=== PATIENT | female | born 1960 | race Caucasian/White ===

== ENCOUNTER → 2017-03-05 | Outpatient (CLI) | payer BC ==
[~2017-03-05] MED LIST: CALCTAB29 PO; CLON0.5T PO; NEXI40GR PO; NORCOBULK FT
[2017-03-05 10:45] LABS: BASO % 0.6 % (0.0-1.0); EOS # 0.1 K/mm3 (0.0-0.50); EOS % 1.9 % (0.0-3.0); LARGE UNSTAINED CELL # 0.2 K/mm3 (0.0-0.4); LARGE UNSTAINED CELL % 2.1 % (0.0-4.0); LYMPH # 2.5 K/mm3 (1.5-4.5); MEAN CORPUSCULAR HEMOGLOBIN 31.6 pg (27.0-33.0); MEAN CORPUSCULAR HGB CONC 33.6 g/dl (32.0-36.5); MEAN CORPUSCULAR VOLUME 94.2 fl (80.0-96.0); MONO # 0.4 K/mm3 (0.0-0.8); MONO % 5.2 % (0.0-5.0); NEUTROPHILS # 4.1 K/mm3 (1.8-7.7); NEUTROPHILS % 57.2 % (36.0-66.0); PLATELET COUNT, AUTOMATED 194 k/mm3 (150-450); RED CELL DISTRIBUTION WIDTH 13.1 % (11.5-14.5); WHITE BLOOD COUNT 7.1 K/mm3 (4.0-10.0)
[2017-03-05 11:16] LABS: ALBUMIN/GLOBULIN RATIO 1.29 (1.00-1.93); ALKALINE PHOSPHATASE 44 U/L (45-117); ALT/SGPT 34 U/L (12-78); ANION GAP 5 MEQ/L (8-16); AST/SGOT 23 U/L (15-37); BILIRUBIN,TOTAL 0.4 MG/DL (0.2-1.0); BLOOD UREA NITROGEN 22 MG/DL (7-18); CARBON DIOXIDE LEVEL 28 MEQ/L (21-32); CHLORIDE LEVEL 102 MEQ/L (98-107); CREATININE FOR GFR 0.88 MG/DL (0.55-1.02); FREE T4 1.15 NG/DL (0.76-1.46); GLOMERULAR FILTRATION RATE > 60.0 (>51); GLUCOSE, FASTING 101 MG/DL (70-105); POTASSIUM SERUM 4.2 MEQ/L (3.5-5.1); SODIUM LEVEL 135 MEQ/L (136-145); TOTAL PROTEIN 7.1 GM/DL (6.4-8.2)
== END ==
LOC: M LAB 09:53
PROVIDERS: ATTEND Physician Assistant Medical
DX: R19.7 Diarrhea, unspecified (principal)

== ENCOUNTER → 2017-03-13 | Outpatient (CLI) | payer BC ==
[~2017-03-13] MED LIST changes: +E-Z-PAQUE 96% w/w SUSP 176GM BTL As Ordered ONE
--- NOTE | 2017-03-13 16:38 | REP ---
SMALL BOWEL FOLLOW-THROUGH: The procedure was performed under the direct supervision of Dr. Navarro. The images were reviewed with Dr. Navarro. The assistant grocery film shows no organomegaly or pathological masses. The intestinal gas pattern is nonspecific. Liquid barium was administered and the barium column was followed through the small bowel to the level of the terminal ileum. Small bowel transit time is approximately 90 minutes. During fluoroscopy gentle palpation shows all loops are freely movable and pliable. There are no fixed or angulated loops. The small bowel mucosal pattern is normal in course and caliber. There is no transition to suggest a partial small bowel obstruction. Note is made of a duodenal diverticulum. Spot filming of terminal ileum demonstrates a tiny diverticulum, otherwise the terminal ileum is unremarkable. IMPRESSION: There is a diverticulum seen in the duodenum. There is a tiny diverticulum seen in the terminal ileum. Otherwise unremarkable small bowel follow-through examination. 45 seconds of fluoroscopy time was utilized for this procedure. Reviewed by WES Ferrell 03/13/2017 04:47 PEdited and Signed by Farshad Navarro MD 03/14/2017 05:17 P
== END ==
LOC: M RAD 08:37 → MERGE 09:00
PROVIDERS: ATTEND Physician Assistant Medical
DX: R19.7 Diarrhea, unspecified (principal); R10.9 Unspecified abdominal pain

== ENCOUNTER → 2019-04-21 | Outpatient (CLI) | payer BC, MEDICARE, OTHER ==
[~2019-04-21] MED LIST changes: -E-Z-PAQUE 96% w/w SUSP 176GM BTL As Ordered ONE
--- NOTE | 2019-04-21 13:43 | REP ---
MRI RIGHT KNEE WITHOUT CONTRAST: HISTORY: Pain in the right knee. No comparison imaging. Rule out ACL or other ligament tear. TECHNIQUE: Axial, coronal and sagittal imaging planes utilized for T1, proton density and T2-weighted scans obtained in the usual fashion with and without fat saturation. MRI FINDINGS: There is minimal amount of suprapatellar joint effusion. No Goins's cyst is appreciated. Anterior and posterior cruciate ligaments have an intact appearance. Patellar and quadriceps tendons are intact. There is no evidence of medial or lateral collateral ligament disruption. There is an area of marrow edema in the lateral tibial plateau just beneath the superolateral cortex. No overlying cartilage defect is appreciated here. This may represent contusion or reactive marrow changes associated with subtle, chondromalacia. The lateral meniscus appears intact on axial and coronal images. There is a focal articular cartilage defect partial-thickness lesion in the medial femoral condyle near the trochlear notch with some underlying marrow edema. There is a larger area of mild chondromalacia anterior to this focal defect. There is some chondromalacia in the inferolateral patellar articular cartilage as well with underlying subcortical cyst/marrow edema changes. There is mild linear fissuring in the central patellar articular cartilage as well. Medial and lateral patellar retinacular structures appear intact. Cortical and medullary bone signal intensity are otherwise normal. No medial meniscal tear is seen. 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 Chondromalacia suspected in the lateral tibial plateau with some underlying marrow edema. No other evidence of internal derangement. Small joint effusion. Electronically Signed by Gautam Gautam MD 04/21/2019 02:21 P
== END ==
LOC: M RAD 10:24
PROVIDERS: ATTEND Orthopaedic Surgery Sports Medicine
DX: M25.561 Pain in right knee (principal)

== ENCOUNTER 2019-05-27 09:01 | Day surgery (SDC) | payer BC, OTHER ==
[~2019-05-27] VITALS: Ht 162.6 cm; Wt 59.1 kg
[~2019-05-27 09:01] MED LIST changes: +ACET1PAC PO; +CLONI1TA PO; +CYMB1CAP5 PO; +HEAL1TAB6 PO; +HYDR12.55 PO; +NS 1,000 ML IV ONE; +OMEP10CASR PO
[2019-05-27] MEDS ORDERED: LIDOCAINE 2% INJ 100 MG/5 ML SDV (FOR ANES.) As Ordered ONE (10:08)
[2019-05-27] MEDS ORDERED: PROPOFOL 200 MG/20 ML VIAL As Ordered ONE ×2 (10:08→11:03)
[2019-05-27] MEDS ORDERED: fentaNYL 100 MCG/2 ML INJECTION (J3010) As Ordered ONE (10:15)
--- NOTE | 2019-05-27 10:54 | ROOR ---
Patient Name: Mera Rendon Procedure Date: 05/27/2019 10:33 AM Date of : 1960 Age: 58 Room: [facility] Gender: Female Note Status: Finalized Procedure: Upper Endoscopy + Biopsies Indications: Epigastric abdominal pain, Heartburn, Exclusion of Eddy's esophagus, Nausea Providers: Dylan Kolb MD Referring MD: DORIAN MELARA MD Requesting Provider: Medicines: Monitored Anesthesia Care Complications: No immediate complications. Procedure: Pre-Anesthesia Assessment: - The heart rate, respiratory rate, oxygen saturations, blood pressure, adequacy of pulmonary ventilation, and response to care were monitored throughout the procedure. The Endoscope was introduced through the mouth, and advanced to the second part of duodenum. The upper GI endoscopy was accomplished without difficulty. The patient tolerated the procedure well. Findings: The Z-line was irregular and was found 35 cm from the incisors. Multiple biopsies were obtained with cold forceps for evaluation to rule out Eddy's Esophagus randomly at the gastroesophageal junction. A medium-sized hiatal hernia was present. No other significant abnormalities were identified in a careful examination of the stomach. Biopsies were taken with a cold forceps in the gastric antrum for Helicobacter pylori testing. The exam of the duodenum was otherwise normal. Impression: - Z-line irregular, 35 cm from the incisors. - Medium-sized hiatal hernia. - Multiple biopsies were obtained at the gastroesophageal junction. - Biopsies were taken with a cold forceps for Helicobacter pylori testing. - The examination was otherwise normal. Recommendation: - Patient has a contact number available for emergencies. The signs and symptoms of potential delayed complications were discussed with the patient. Return to normal activities tomorrow. Written discharge instructions were provided to the patient. - High fiber diet. - Discharge patient to home. - Follow an antireflux regimen. - Continue present medications. - Await pathology results. - Telephone GI clinic for pathology results in 1 week. - Return to referring physician. - Check Portal Online for Path Results.([email or web address]) - The findings and recommendations were discussed with the patient's family. Dylan Kolb MD Dylan Kolb MD 05/27/2019 10:54:32 AM Electronically signed by Dylan Kolb MD Number of Addenda: 0 Note Initiated On: 05/27/2019 10:33 AM Estimated Blood Loss: Estimated blood loss: none.
--- NOTE | 2019-05-27 11:16 | ROOR ---
Patient Name: Mera Rendon Procedure Date: 05/27/2019 10:34 AM Date of : 1960 Age: 58 Room: [facility] Gender: Female Note Status: Finalized Procedure: Total Colonoscopy to Cecum + Biopsy Polypectomy Indications: Colon cancer screening in patient at increased risk: Colorectal cancer in mother, Incidental - Lower abdominal pain, Incidental - Change in bowel habits Providers: Dylan Kolb MD Referring MD: DORIAN MELARA MD Requesting Provider: Medicines: Monitored Anesthesia Care Complications: No immediate complications. Procedure: Pre-Anesthesia Assessment: - The heart rate, respiratory rate, oxygen saturations, blood pressure, adequacy of pulmonary ventilation, and response to care were monitored throughout the procedure. The Colonoscope was introduced through the anus and advanced to the cecum, identified by appendiceal orifice and ileocecal valve. The colonoscopy was performed without difficulty. The patient tolerated the procedure well. The quality of the bowel preparation was excellent. Findings: The perianal and digital rectal examinations were normal. Non-bleeding internal hemorrhoids were found during retroflexion. The hemorrhoids were small and Grade I (internal hemorrhoids that do not prolapse). A small polyp was found at 30 cm proximal to the anus. The polyp was sessile. The polyp was removed with a jumbo cold forceps. Resection and retrieval were complete. The exam was otherwise without abnormality on direct and retroflexion views. Impression: - Non-bleeding internal hemorrhoids. - One small polyp at 30 cm proximal to the anus, removed with a jumbo cold forceps. Resected and retrieved. - The examination was otherwise normal on direct and retroflexion views. - The exam was otherwise normal to the cecum. Recommendation: - Patient has a contact number available for emergencies. The signs and symptoms of potential delayed complications were discussed with the patient. Return to normal activities tomorrow. Written discharge instructions were provided to the patient. - High fiber diet. - Discharge patient to home. - Continue present medications. - Await pathology results. - Telephone GI clinic for pathology results in 1 week. - Repeat colonoscopy in 5 years for screening purposes. - Return to referring physician. - The findings and recommendations were discussed with the patient's family. Dylan Kolb MD Dylan Kolb MD 05/27/2019 11:15:51 AM Electronically signed by Dylan Kolb MD Number of Addenda: 0 Note Initiated On: 05/27/2019 10:34 AM Estimated Blood Loss: Estimated blood loss: none.
[2019-05-27 11:51] VITALS: BP 125/85
== END 2019-05-27 11:58 | disposition home or self-care (01) ==
LOC: M OPP 09:01
PROVIDERS: ATTEND Internal Medicine Gastroenterology
DX: Z12.11 Encounter for screening for malignant neoplasm of colon (principal); Z80.0 Family history of malignant neoplasm of digestive organs; K63.5 Polyp of colon; K22.8 Other specified diseases of esophagus; K44.9 Diaphragmatic hernia without obstruction or gangrene; R10.13 Epigastric pain; R11.0 Nausea; Z79.891 Long term (current) use of opiate analgesic; Z79.899 Other long term (current) drug therapy; Z88.8 Allergy status to other drugs, medicaments and biological substances; F17.210 Nicotine dependence, cigarettes, uncomplicated
CPT/HCPCS: 43239; 45380; 88305; J3010

== ENCOUNTER 2021-11-07 07:56 | Day surgery (SDC) | payer OTHER ==
[~2021-11-07] VITALS: Ht 162.6 cm; Wt 66.7 kg
[~2021-11-07 07:56] MED LIST changes: +BISO5TAB14 PO; +BUSP15TA47 PO; +OMEP-173 PO
[2021-11-07] MEDS ORDERED: MIDAZOLAM INJ 2MG/2ML VIAL (J2250 PER 1MG) As Ordered ONE (09:17)
[2021-11-07] MEDS ORDERED: fentaNYL 100 MCG/2 ML INJECTION As Ordered ONE (09:18)
[2021-11-07] MEDS ORDERED: propofoL 200 MG/20 ML VIAL As Ordered ONE (09:21)
[2021-11-07 10:20] VITALS: BP 125/85
== END 2021-11-07 10:38 | disposition home or self-care (01) ==
LOC: M OPP 07:56
PROVIDERS: ATTEND Internal Medicine Gastroenterology
DX: K63.5 Polyp of colon (principal); K64.8 Other hemorrhoids; K92.1 Melena; R19.4 Change in bowel habit; I85.00 Esophageal varices without bleeding; K22.9 Disease of esophagus, unspecified; K44.9 Diaphragmatic hernia without obstruction or gangrene; K29.70 Gastritis, unspecified, without bleeding; R10.13 Epigastric pain; R13.10 Dysphagia, unspecified; Z79.899 Other long term (current) drug therapy; Z88.8 Allergy status to other drugs, medicaments and biological substances; F17.210 Nicotine dependence, cigarettes, uncomplicated; Z80.8 Family history of malignant neoplasm of other organs or systems; Z80.41 Family history of malignant neoplasm of ovary
CPT/HCPCS: 43239; 45380; 45385; 88108; 88305; J2250; J3010

== ENCOUNTER → 2022-01-19 | Outpatient (CLI) | payer OTHER ==
[~2022-01-19] MED LIST changes: -NS 1,000 ML IV ONE
== END ==
LOC: M SOG 14:10
PROVIDERS: ATTEND Orthopaedic Surgery
DX: M25.532 Pain in left wrist (principal); S62.102A Fracture of unspecified carpal bone, left wrist, initial encounter for closed fracture; X58.XXXA Exposure to other specified factors, initial encounter; Y92.9 Unspecified place or not applicable; Y93.9 Activity, unspecified; Y99.9 Unspecified external cause status

== ENCOUNTER → 2022-03-06 | Outpatient (CLI) | payer OTHER | LOC: M SOG 10:01 | PROVIDERS: ATTEND Orthopaedic Surgery | DX: S62.112A Displaced fracture of triquetrum [cuneiform] bone, left wrist, initial encounter for closed fracture (principal); X58.XXXA Exposure to other specified factors, initial encounter; Y92.9 Unspecified place or not applicable; Y93.9 Activity, unspecified; Y99.9 Unspecified external cause status ==